=== PATIENT | female | born 1970 | race Caucasian/White ===

== ENCOUNTER 2021-04-07 10:42 | Emergency (ER) | payer OTHER, SELFPAY ==
[2021-04-07 10:52] VITALS: BP 142/70; BP 160/99; PULSE 112; PULSE 97; RESP 18; TEMP 37.4; O2SAT 96; O2SAT 98; BMI 27.4
--- NOTE | 2021-04-07 11:09 | ED.NAVMDI ---
HPI - Nausea/Vomiting/Diarrhea General Chief complaint: Nausea/Vomiting/Diarrhea Stated complaint: BODYACHES,CHILLS,FEVER,DIARRHEA Time Seen by Provider: 04/07/21 11:04 Source: patient Mode of arrival: ambulatory Limitations: no limitations History of Present Illness HPI Narrative: THIS IS A 50 YEARS OLD FEMALE PRESENTED TO THE ED WITH A CHIEF COMPLAINT OF NAUSEA VOMITING A FEVER. SHE STATES SHE HAD COVID CONTACT BUT SHE HAS BEEN TESTED AT THE URGENT CARE FOR COVID A DO THE TEST WAS NEGATIVE MD elicited complaint: nausea and vomiting Onset (ago): day(s) (3) Description of vomiting: watery Associated nausea: Yes Associated abdominal pain: Yes Radiation: diffuse Quality: cramping Associated symptoms: loss of appetite, malaise and nausea/vomiting Related Data Allergies Allergy/AdvReac Type Severity Reaction Status Date / Time ibuprofen [From Motrin] AdvReac Stomach Verified 04/07/21 10:57 Upset Review of Systems Review of Systems: Yes all other systems are reviewed and are negative Cardiovascular: Cardiovascular: Reports no additional cardiovascular complaints, Denies chest pain, Denies chest pain at rest and Denies chest pain with activity Respiratory: Respiratory: Reports no additional respiratory complaints Gastrointestinal: Gastrointestinal: Reports nausea and Reports vomiting Musculoskeletal: Musculoskeletal: Reports no additional musculoskeletal complaints Neurologic: Reports system reviewed and no additional complaints, except as documented PMFSH Past Medical History Attestation statement: The following information was validated with the patient. Medical History Anxiety Chronic back pain High cholesterol Social History Social History Alcohol intake: never Patient Tobacco Use Status: Tobacco use Unknown Use of substances other than those prescribed or required for medical reasons: No Advance Directives: Yes Advance Directives Information Provided: Yes Advance Directives on File: No Patient : No Physical Exam Vital Signs: Vital Signs: Last Vital Signs Temp 99.4 F 04/07/21 10:52 Pulse 97 04/07/21 10:52 Resp 18 04/07/21 10:52 BP 160/99 H 04/07/21 10:52 Pulse Ox 96 04/07/21 10:52 Body Mass Index 27.4 Const: General: cooperative and comfortable Orientation/consciousness: oriented to person, oriented to place, oriented to time and patient oriented x3 Limitations: no limitations HENMT: Head: Yes normal to inspection Face and sinus: Yes normal facial exam Neck: Neck: Yes normal visual inspection, Yes full ROM and Yes no lymphadenopathy Thyroid: Thyroid normal Lymphatic: no lymphadenopathy noted Chest: Chest palpation & inspection: normal inspection of the chest Resp: Effort & Inspection: normal respiratory effort Auscultation: clear to auscultation bilaterally Cardio: Jugular venous distension: no JVD Rate: regular rate Rhythm: regular rhythm GI: Inspection: Yes normal to inspection Palpation (GI): Soft to palpation, not firm, nontender, no guarding and not rigid Auscultation: normal bowel sounds Skin: General skin exam: no rashes or lesions noted, elasticity normal and turgor normal Rashes: no rashes Neuro: General: oriented to person, oriented to place, oriented to time and patient oriented x3 Course Reevaluation(s) Reevaluation #1: REEXAMINED SHE LOOKS WELL,TEXING WITH THE PHONE ANTICIPATE DISCHARGE HOME Reevaluation #2: COVID TEST POSITIVE THIS WAS TOLD TO THE PATIENT ; SHE WITH ISOLATE HERSELF SHE REMAINS STABLE SHE IS OXYGENATING VERY WELL MDM - Nausea/Vomiting/Diarrhea Lab Data Result diagrams: 04/07/21 11:18 04/07/21 11:18 Labs: Lab Results 04/07/21 04/07/21 04/07/21 Range/Units 11:18 11:18 Unknown WBC 3.3 L (4.8-10.8) X10*3/uL RBC 5.07 (4.20-5.50) X10*6/uL Hgb 12.6 (12.0-16.0) g/dl Hct 39.5 (37-47) % MCV 77.9 L (80-98) fL MCH 24.9 L (27.0-33.0) pg MCHC 31.9 (31.0-35.0) g/dl RDW 13.1 (11.0-16.0) % Plt Count 189 (160-400) X10*3/uL MPV 10.0 (9.4-12.3) fL Immature Gran % (Auto) 0.3 (0.0-0.4) % Neut % (Auto) 62.1 (45-73) % Lymph % (Auto) 23.5 (20-40) % [place] % (Auto) 13.5 H (2-11) % Eos % (Auto) 0.6 (0-4) % Baso % (Auto) 0.0 (0-2) % Lymph # (Auto) 0.8 L (1.2-4.9) X10*3/uL [place] # (Auto) 0.4 (0.1-1.2) X10*3/uL Eos # (Auto) 0.0 (0.0-0.4) X10*3/uL Baso # (Auto) 0.0 (0.0-0.2) X10*3/uL Abs Immat Gran (auto) 0.01 (0.00-0.03) X10*3/uL Absolute Neuts (auto) 2.0 (2.0-8.3) X10*3/uL Absolute Nucleated RBC 0.000 (0.0-0.012) X10*3/uL Nucleated RBC % (auto) 0.0 (0.0-0.2) /100WBC Sodium 138 (135-145) mmol/L Potassium 3.7 (3.3-5.1) mmol/L Chloride 105 (96-108) mmol/L Carbon Dioxide 25 (22-29) mmol/L Anion Gap 12 (12-20) BUN 9 (9-16) mg/dL Creatinine 1.20 (0.5-1.4) mg/dL Estim Creat Clear Calc 53.5 Estimated GFR 47 Random Glucose 99 (60-115) mg/dL Calcium 9.1 (8.4-10.2) mg/dL Total Bilirubin < 0.2 (0.0-1.0) mg/dL AST 54 H (5-31) U/L ALT 71 H (0-31) U/L Alkaline Phosphatase 104 (39-117) U/L Total Protein 7.1 (6.5-8.0) g/dL Albumin 4.2 (3.5-5.0) g/dL Coronavirus (PCR) POSITIVE A (Negative) Influenza Type A (PCR) NEGATIVE (Negative) Influenza Type B (PCR) NEGATIVE (Negative) RSV RNA Qual (PCR) NEGATIVE (Negative) Discharge Plan Discharge Clinical Impression: Vomiting, COVID-19 Patient Disposition: Home, Self-Care Instructions: Acute Nausea and Vomiting (ED), COVID-19 (Coronavirus Disease 2019) (ED) Referrals: Regan Jarrell MD [Primary Care Provider] - 2 days
[2021-04-07] MEDS: 0.9 % Sodium Chloride 1,000 ML 999 ML IVCONT (11:19)
[2021-04-07] MEDS: ondansetron HCL 4 MG/2 ML VIAL IVPUSH (11:19)
[2021-04-07 11:24] LABS: MANUAL DIFF FLAG NO
[2021-04-07 11:25] LABS: Eosinophils Percent Auto 0.6 % (0-4); Hematocrit 39.5 % (37-47); Hemoglobin 12.6 g/dl (12.0-16.0); Imm Gran Abs Auto 0.01 X10*3/uL (0.00-0.03); Imm Gran Pct Auto 0.3 % (0.0-0.4); Lymphocytes Absolute Auto 0.8 X10*3/uL (1.2-4.9); Lymphocytes Percent Auto 23.5 % (20-40); Mean Corpuscular HGB Conc 31.9 g/dl (31.0-35.0); Mean Corpuscular Hemoglobin 24.9 pg (27.0-33.0); Mean Corpuscular Volume 77.9 fL (80-98); Monocytes Absolute Auto 0.4 X10*3/uL (0.1-1.2); Monocytes Percent Auto 13.5 % (2-11); Neutrophils Percent Auto 62.1 % (45-73); Platelet Count 189 X10*3/uL (160-400); Red Blood Count 5.07 X10*6/uL (4.20-5.50); Red Cell Distribution Width 13.1 % (11.0-16.0); White Blood Count 3.3 X10*3/uL (4.8-10.8)
[2021-04-07 11:51] LABS: Alanine Aminotransferase 71 U/L (0-31); Albumin Level 4.2 g/dL (3.5-5.0); Alkaline Phosphatase 104 U/L (39-117); Anion Gap 12 (12-20); Aspartate Amino Transferase 54 U/L (5-31); Bilirubin Total < 0.2 mg/dL (0.0-1.0); Blood Urea Nitrogen 9 mg/dL (9-16); Calcium 9.1 mg/dL (8.4-10.2); Carbon Dioxide 25 mmol/L (22-29); Chloride 105 mmol/L (96-108); Creatinine Clr Calc Pharmacy 53.5; Estimated Glomerular Filt Rate 47; Glucose Random 99 mg/dL (60-115); Potassium 3.7 mmol/L (3.3-5.1); Sodium 138 mmol/L (135-145); Total Protein 7.1 g/dL (6.5-8.0)
[2021-04-07 12:21] LABS: Influenza A PCR NEGATIVE (Negative); Influenza B PCR NEGATIVE (Negative); Resp Syncy Virus RNA Qual PCR NEGATIVE (Negative); SARS COV2 PCR INHOUSE POSITIVE (Negative)
== END 2021-04-07 12:50 | disposition home or self-care (01) ==
PROVIDERS: Emergency Provider Emergency Medicine; PCP Internal Medicine
DX: U07.1 COVID-19 (principal); M79.10 Myalgia, unspecified site; R50.9 Fever, unspecified
CPT/HCPCS: 0241U; 36415; 80053; 85025; 96365; 96375; 99284; J2405